=== PATIENT | female | born 1995 | race Caucasian/White ===

== ENCOUNTER 2018-01-15 02:02 | Emergency (ER) | payer SELFPAY ==
--- NOTE | 2018-01-15 02:10 | PDOC ---
History of Present Illness - General Chief Complaint: Injury Stated Complaint: INJURY TO RIGHT ANKLE Time Seen by Provider: 01/15/18 02:05 - History of Present Illness Initial Comments: 01/15/18 02:10 This 22-year-old woman with a history of bipolar disorder (not currently on any medications) and eczema presents with a history of tripping over a curb and falling on her left knee and right ankle approximately 2 hours prior to presentation. She describes hyperflexion of the right foot (plantar flexion) on impact. After this, she had pain and significant swelling in the right ankle. No known sprain/fracture of right ankle/foot. She has an abrasion and mild pain in her left knee. She denies head/neck injury or pain. She has no chest pain, abdominal pain, upper extremity pain. No pelvic or hip discomfort noted. Past History - Past Medical History Allergies/Adverse Reactions: Allergies Allergy/AdvReac Type Severity Reaction Status Date / Time No Known Allergies Allergy Verified 01/15/18 02:04 Home Medications: Ambulatory Orders Oxycodone HCl/Acetaminophen [Percocet 5-325 mg Tablet] 1 tab PO Q6H PRN #8 tablet MDD 4 tabs 01/15/18 Review of Systems - Review of Systems Able to Perform ROS?: Yes Comments:: 12 point review of systems is negative except for what is noted in the history of present illness *Physical Exam - Physical Exam Comments: GENERAL: Adult female, alert and oriented 3, in no acute distress HEAD: Normal with no signs of trauma. EYES: PERRLA, EOMI, sclera anicteric, conjunctiva clear. ENT: Ears normal, nares patent, oropharynx clear without exudates. Dry mucous membranes. NECK: Normal range of motion, supple without lymphadenopathy, JVD, or masses. LUNGS: Breath sounds equal, clear to auscultation bilaterally. No wheezes, and no crackles. HEART:Regular rate and rhythm, normal S1 and S2 without murmur, rub or gallop. ABDOMEN:.normal bowel sounds No guarding,tenderness or rebound.No masses No distention. EXTREMITIES: Right lower extremity-marked edema, moderate tenderness lateral malleolus without deformity or ecchymosis No evidence of ligamentous instability; foot nontender/nonedematous Distal neurovascular functioning intact Left lower extremity-mild tenderness/edema without deformity or ecchymosis anterior tibial surface Extremity exam otherwise normal NEUROLOGICAL: Cranial nerves II through XII grossly intact. Normal speech. No focal neurological deficits. MUSCULOSKELETAL: Back non-tender to palpation, no CVA tenderness SKIN: Warm, Dry, normal turgor, no rashes or lesions noted. Progress Note - Progress Note Progress Note: Right ankle x-ray and left knee x-ray without evidence of fracture or dislocation. Clinical presentation most consistent with right ankle sprain/left knee contusion Right ankle placed in removable stirrup splint and patient given crutches for ambulation (patient is familiar with crutch walking and demonstrated adequate stability prior to discharge) Patient given referral information to [facility] for follow-up (patient lives in [facility] and may follow-up with orthopedic group closer to home.) *DC/Admit/Observation/Transfer Diagnosis at time of Disposition: Right ankle sprain Qualifiers: Encounter type: initial encounter Involved ligament of ankle: anterior talofibular ligament Qualified Code(s): S93.491A - Sprain of other ligament of right ankle, initial encounter - Discharge Dispostion Disposition: HOME Condition at time of disposition: Stable - Prescriptions Prescriptions: Oxycodone HCl/Acetaminophen [Percocet 5-325 mg Tablet] 1 tab PO Q6H PRN #8 tablet MDD 4 tabs PRN Reason: Severe Pain - Referrals Referrals: Chivo Chanel MD [Staff Physician] - 7 days - Patient Instructions Printed Discharge Instructions: Ankle Sprain Additional Instructions: Elevate/ice to ankle as much as possible over the next 48 hours Crutches for ambulation for the next 3 days Porfirio wrap/ankle splint when up and around the next week Motrin/Aleve/Tylenol as needed for [id number] pain Percocet 5/325 as needed for severe pain-this medication will make you sleepy Follow-up with Dr. Chanel orthopedic group or orthopedic group closer to home within the next 7-10 days - Post Discharge Activity
[2018-01-15 02:11] VITALS: BP 132/82; PULSE 105; TEMP 98.5; BMI 29.7
[2018-01-15] MEDS ORDERED: IBUPROFEN 600 MG TABLET (FP) PO ONE ×2 (02:16→02:24)
== END 2018-01-15 03:38 | disposition home or self-care (01) ==
LOC: FER 02:02
PROC: 2W3RX1Z Immobilization of Left Lower Leg using Splint (ICD-10-PCS; principal; 2018-01-15)
DX: S93.491A Sprain of other ligament of right ankle, initial encounter (principal); W18.09XA Striking against other object with subsequent fall, initial encounter; Y93.89 Activity, other specified; Y92.410 Unspecified street and highway as the place of occurrence of the external cause; F31.9 Bipolar disorder, unspecified
CPT/HCPCS: 73562-TC-LT-FY; 73610-TC-RT-FY; 99281-25